=== PATIENT | female | born 1965 | race Caucasian/White ===

== ENCOUNTER 2017-05-17 17:09 | Emergency (ER) | payer OTHER ==
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
--- NOTE | 2017-05-18 12:09 | ED MED RECONCILIATION SUMMARY ---
Patient: KIERA MOCK Medication Reconciliation Report [facility] VisitID: [id number] [address] [place] [address] 51y, F Registration Date/Time: 05/17/2017 Weight: 79.3 kg Height/Length: 62 in. BMI: 32.0 ALLERGIES: Ambien, Gabapentin, Lamotrigine, morphine, Seroquel The patient's Home Medications are listed below: CONTINUE TAKING THE FOLLOWING MEDICATIONS: Flonase Nasal [place] Oral Methocarbamol Oral TraZODone HCl Oral Vistaril Oral ZyrTEC Allergy Oral The source(s) of the original Home Medication information: Not obtained. The following Medications were given to the patient in the Emergency Department: Acetaminophen [PO] PO 1000 mg, administered: 05/17/2017 8:44:00 PM Macrobid [PO] PO 100 mg, administered: 05/17/2017 9:03:00 PM The following Medications were prescribed to the patient: Acetaminophen (available over the counter): take according to label instructions. -- Branden Puckett DO Macrobid 100 mg: Take 1 capsule orally every 12 hours for 7 days. No refills. Substitution is permissible. -- Branden Puckett DO
--- NOTE | 2017-05-18 12:09 | ED MAR SUMMARY ---
..... Medication Administration Record [facility] [address] [place] [address] Patient: KIERA MOCK Visit ID: [id number] 51y, F Weight: 79.3 kg Height/Length: 62 in BMI: 32 ALLERGIES: Lamotrigine, Gabapentin, Seroquel, Ambien, morphine Given 20:44 05/17/2017 Mohit Escudero R.N. Medication Administered: ACETAMINOPHEN [PO] (APAP), Dose: 1000 mg PO. Medication Ordered: Acetaminophen PO 1,000 mg (NOW). Given 21:03 05/17/2017 Mohit Escudero R.N. Medication Administered: MACROBID [PO], Dose: 100 mg PO. Medication Ordered: Macrobid PO 100 mg (NOW).
--- NOTE | 2017-05-18 12:09 | ED MAR SUMMARY ---
..... Medication Administration Record [facility] [address] [place] [address] Patient: KIERA MOCK Visit ID: [id number] 51y, F Weight: 79.3 kg Height/Length: 62 in BMI: 32 ALLERGIES: Lamotrigine, Gabapentin, Seroquel, Ambien, morphine Given 20:44 05/17/2017 Mohit Escudero R.N. Medication Administered: ACETAMINOPHEN [PO] (APAP), Dose: 1000 mg PO. Medication Ordered: Acetaminophen PO 1,000 mg (NOW). Given 21:03 05/17/2017 Mohit Escudero R.N. Medication Administered: MACROBID [PO], Dose: 100 mg PO. Medication Ordered: Macrobid PO 100 mg (NOW).
--- NOTE | 2017-05-18 12:09 | ED MED RECONCILIATION SUMMARY ---
Patient: KIERA MOCK Medication Reconciliation Report [facility] VisitID: [id number] [address] [place] [address] 51y, F Registration Date/Time: 05/17/2017 Weight: 79.3 kg Height/Length: 62 in. BMI: 32.0 ALLERGIES: Ambien, Gabapentin, Lamotrigine, morphine, Seroquel The patient's Home Medications are listed below: CONTINUE TAKING THE FOLLOWING MEDICATIONS: Flonase Nasal [place] Oral Methocarbamol Oral TraZODone HCl Oral Vistaril Oral ZyrTEC Allergy Oral The source(s) of the original Home Medication information: Not obtained. The following Medications were given to the patient in the Emergency Department: Acetaminophen [PO] PO 1000 mg, administered: 05/17/2017 8:44:00 PM Macrobid [PO] PO 100 mg, administered: 05/17/2017 9:03:00 PM The following Medications were prescribed to the patient: Acetaminophen (available over the counter): take according to label instructions. -- Branden Puckett DO Macrobid 100 mg: Take 1 capsule orally every 12 hours for 7 days. No refills. Substitution is permissible. -- Branden Puckett DO
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
== END 2017-05-18 07:58 ==
LOC: ED SRH 17:09
DX: S23.3XXA Sprain of ligaments of thoracic spine, initial encounter (principal); V47.1XXA Car passenger injured in collision with fixed or stationary object in nontraffic accident, initial encounter; Y93.9 Activity, unspecified; Y92.9 Unspecified place or not applicable; Y99.9 Unspecified external cause status; G56.01 Carpal tunnel syndrome, right upper limb; R45.851 Suicidal ideations